=== PATIENT | male | born 1940 | race Caucasian/White ===

== ENCOUNTER 2021-07-19 15:16 | Inpatient (IN) | payer OTHER ==
[2021-07-19 16:23] LABS: Hemoglobin 13.3 g/dL (13.5-17.5); Mean Corpuscular HGB CONC 32.8 g/dL (32.0-36.0); Mean Corpuscular Hemoglobin 30.8 pg (27.0-33.0); Mean Platelet Volume 10.9 fl (7.4-10.4); Platelet Count 320 10x3/uL (150-450); RBC Distribution Width 12.5 % (11.5-14.5); Red Blood Cell (RBC) Count 4.32 10x6/uL (4.32-5.72); White Blood Cell (WBC) Count 21.5 10x3/uL (3.5-10.5)
[2021-07-19 16:38] LABS: ALT (SGPT) 21 U/L (8-55); AST (SGOT) 21 U/L (5-34); Albumin 3.9 g/dL (3.4-4.8); Alkaline Phosphatase 51 U/L (40-110); Anion Gap 19 mmol/L (10-20); BUN (Urea Nitrogen) 21 mg/dL (8.4-25.7); Calc. Creatinine Clearance 0 mL/min (70-130); Calcium 10.1 mg/dL (7.8-10.44); Carbon Dioxide 21 mmol/L (23-31); Chloride 99 mmol/L (98-107); Globulin 3.4 g/dL (2.4-3.5); Glucose 349 mg/dL (83-110); Potassium 4.4 mmol/L (3.5-5.1); Protein, Total 7.3 g/dL (5.8-8.1); Sodium 135 mmol/L (136-145)
[2021-07-19 17:36] LABS: Band 4 % (5-11); Lymphocytes 7 % (21-51); Monocytes 9 % (0-10); Reactive Lymphocytes 1 % (0-10)
[2021-07-19 17:37] LABS: MDiff Complete? YES; Neutrophil 79 % (42-75); Platelet Morphology Comment Appears Adequate; RBC Morphology Normal; Vacuoles SLIGHT
[2021-07-19 17:59] LABS: Bilirubin Neg (Negative); Blood, Urine 10 (Negative); Clarity Clear (Clear); Glucose, Urine (Dipstick) >=1000 mg/dL (Negative); Ketone, Urine 50 mg/dL (Negative); Leukocyte Negative (Negative); Nitrite Negative (Negative); Protein, Urine (Dipstick) 30 mg/dl (Neg-Trace); Specific Gravity, Urine 1.025 (1.002-1.036)
[2021-07-19 18:13] LABS: Bacteria/HPF 2+ HPF (None Seen); RBC/HPF 0-3 HPF (0-3); Squamous Epithelial 0-3 HPF (0-3); WBC/HPF 0-3 HPF (0-3)
[2021-07-19 18:14] LABS: Mucous/LPF 3+ LPF (<2+)
[2021-07-19] MEDS ORDERED: Senokot S 8.6-50 MG TAB PO PRN (20:31)
[2021-07-19] MEDS ORDERED: Calcium Carbonate 500 MG ChewTAB PO PRN (20:31)
[2021-07-19] MEDS ORDERED: Dextrose 5% in Water 1,000 ML IV PRN (20:31)
[2021-07-19] MEDS ORDERED: Ondansetron PF 4 MG/2 ML Vial IVP PRN (20:31)
[2021-07-19] MEDS ORDERED: Dextrose 50% Abboject 50 ML SYRINGE SLOW IVP PRN (20:31)
[2021-07-19] MEDS ORDERED: HYDROcodone/Acetaminophen 5/325 mg Tablet PO PRN (20:31)
[2021-07-19] MEDS ORDERED: cefTRIAXone\\ROCEPHIN 1 GM VIAL ONE (20:34)
[2021-07-19] MEDS ORDERED: Piperacillin/Tazobactam 3.375 GM in Sodium Chloride 0.9% 100 ML IVPB SCH ×2 (20:45→23:59)
[2021-07-19] MEDS ORDERED: Azithromycin 500 MG VIAL ONE (21:10)
[2021-07-19 22:09] LABS: SARS-CoV-2 NAA Rapid Test Not Detected (NotDetected)
[2021-07-19 22:52] VITALS: BMI 27.3
[2021-07-19] MEDS ORDERED: Sodium Chloride 0.9% 1,000 ML IV SCH (23:00)
[2021-07-19] MEDS ORDERED: Simvastatin 10 MG TAB PO SCH (23:15)
[2021-07-19] MEDS ORDERED: Tamsulosin HCl 0.4 MG CAP PO SCH (23:15)
[2021-07-19] MEDS ORDERED: Lorazepam 1 MG TAB PO SCH (23:15)
[2021-07-19 23:30] LABS: Lactic Acid 1.9 mmol/L (0.5-2.2)
[2021-07-19] MEDS: HumaLOG 300 UNITS/3 ML VIAL SC PRN (23:38)
[2021-07-19] MEDS: Guaifenesin DM 100-10/5 ML UDCUP PO PRN (23:43)
[2021-07-20] MEDS: Piperacillin/Tazobactam 3.375 GM in Sodium Chloride 0.9% 100 ML IVPB SCH ×3 (04:31→19:57)
[2021-07-20 04:49] LABS: Strep pneumo Urine Ag NEGATIVE (NEGATIVE)
[2021-07-20 05:55] LABS: #Basophils 0.1 10x3/uL (0.0-0.2); #Eosinphils 0.2 10x3/uL (0.0-0.5); #Monocytes 1.1 10x3/uL (0.0-1.1); #Neutrophils 11.8 10x3/uL (1.5-8.4); %Basophils 0.3 % (0.0-2.0); %Eosinophils 1.4 % (0.0-6.0); %Lymphocytes 13.6 % (18.0-47.0); %Monocytes 7.4 % (0.0-10.0); %Neutrophils 76.8 % (40.0-75.0); Hemoglobin 12.1 g/dL (13.5-17.5); Mean Corpuscular HGB CONC 33.2 g/dL (32.0-36.0); Mean Corpuscular Hemoglobin 31.5 pg (27.0-33.0); Mean Corpuscular Volume 94.8 fl (81.2-95.1); Mean Platelet Volume 11.6 fl (7.4-10.4); Platelet Count 250 10x3/uL (150-450); RBC Distribution Width 12.6 % (11.5-14.5); Red Blood Cell (RBC) Count 3.84 10x6/uL (4.32-5.72); White Blood Cell (WBC) Count 15.4 10x3/uL (3.5-10.5)
[2021-07-20 06:11] LABS: Anion Gap 16 mmol/L (10-20); BUN (Urea Nitrogen) 20 mg/dL (8.4-25.7); Calc. Creatinine Clearance 63 mL/min (70-130); Calcium 9.6 mg/dL (7.8-10.44); Carbon Dioxide 21 mmol/L (23-31); Chloride 106 mmol/L (98-107); Glucose 190 mg/dL (83-110); Magnesium 1.8 mg/dL (1.6-2.6); Potassium 3.8 mmol/L (3.5-5.1); Sodium 139 mmol/L (136-145)
[2021-07-20] MEDS: Budesonide 0.5 MG/2 ML NEB NEB SCH ×2 (06:12→18:48)
[2021-07-20] MEDS: Fenofibrate Nanocrystallized 145 MG TAB PO SCH (08:35)
[2021-07-20] MEDS: Finasteride 5 MG TAB PO SCH ×2 (08:35→08:54)
[2021-07-20] MEDS: Multivitamin W/ Minerals 1 TAB PO SCH (08:36)
[2021-07-20] MEDS: Acetaminophen 325 MG TAB PO PRN (08:36)
[2021-07-20] MEDS: Enoxaparin Sodium 40 MG/0.4 ML SYRINGE SC SCH (08:36)
[2021-07-20] MEDS: Atenolol 25 MG TAB PO SCH (08:36)
[2021-07-20] MEDS ORDERED: cycloSPORINE 0.05% Ophthalmic Droperette EA EYE SCH (09:00)
[2021-07-20 09:15] LABS: Legionella Urinary Ag Negative (Negative)
[2021-07-20] MEDS ORDERED: Artificial Tear Sol 15 ML BOT EA EYE PRN (09:17)
[2021-07-20] MEDS: HumaLOG 300 UNITS/3 ML VIAL SC PRN (11:37)
[2021-07-20] MEDS: Guaifenesin DM 100-10/5 ML UDCUP PO PRN (19:55)
[2021-07-20] MEDS: Simvastatin 10 MG TAB PO SCH (19:56)
[2021-07-20] MEDS: Tamsulosin HCl 0.4 MG CAP PO SCH (19:59)
[2021-07-20] MEDS: Lorazepam 1 MG TAB PO SCH (22:00)
[2021-07-20] MEDS: Azithromycin 500 MG in Sodium Chloride 0.9% 250 ML 250 ML IVPB SCH (22:30)
[2021-07-21] MEDS: HumaLOG 300 UNITS/3 ML VIAL SC PRN ×3 (01:00→17:23)
[2021-07-21] MEDS: Piperacillin/Tazobactam 3.375 GM in Sodium Chloride 0.9% 100 ML IVPB SCH (05:00)
[2021-07-21] MEDS: Budesonide 0.5 MG/2 ML NEB NEB SCH ×2 (06:40→18:45)
[2021-07-21] MEDS: Atenolol 25 MG TAB PO SCH (08:41)
[2021-07-21] MEDS: Finasteride 5 MG TAB PO SCH (08:41)
[2021-07-21] MEDS: cefTRIAXone\\ROCEPHIN 1 GM in Sodium Chloride 0.9% 100 ML IVPB SCH (08:42)
[2021-07-21] MEDS: Multivitamin W/ Minerals 1 TAB PO SCH (08:42)
[2021-07-21] MEDS: Enoxaparin Sodium 40 MG/0.4 ML SYRINGE SC SCH (08:42)
[2021-07-21] MEDS: Fenofibrate Nanocrystallized 145 MG TAB PO SCH (08:46)
[2021-07-21 08:57] LABS: Hemoglobin A1c 9.1 % (4.0-6.0)
[2021-07-21] MEDS ORDERED: Amlodipine 5 MG TAB PO SCH (12:00)
[2021-07-21] MEDS: Tamsulosin HCl 0.4 MG CAP PO SCH (20:42)
[2021-07-21] MEDS: Lorazepam 1 MG TAB PO SCH (20:42)
[2021-07-21] MEDS: Simvastatin 10 MG TAB PO SCH (20:42)
[2021-07-21] MEDS: Azithromycin 500 MG in Sodium Chloride 0.9% 250 ML 250 ML IVPB SCH (22:17)
[2021-07-21] MEDS: Heparin 5,000 UNITS/ML VIAL SC SCH (22:19)
[2021-07-22] MEDS: HumaLOG 300 UNITS/3 ML VIAL SC PRN ×3 (01:00→17:18)
[2021-07-22] MEDS: Acetaminophen 325 MG TAB PO PRN ×2 (01:15→18:23)
[2021-07-22] MEDS: hydrALAZINE 20 MG/ML VIAL SLOW IVP PRN ×3 (01:15→17:18)
[2021-07-22] MEDS: Budesonide 0.5 MG/2 ML NEB NEB SCH ×2 (06:15→19:45)
[2021-07-22 06:46] LABS: #Basophils 0.1 10x3/uL (0.0-0.2); #Eosinphils 0.6 10x3/uL (0.0-0.5); #Monocytes 1.2 10x3/uL (0.0-1.1); #Neutrophils 8.1 10x3/uL (1.5-8.4); %Eosinophils 4.7 % (0.0-6.0); %Lymphocytes 14.4 % (18.0-47.0); %Monocytes 9.9 % (0.0-10.0); %Neutrophils 67.3 % (40.0-75.0); Hemoglobin 12.2 g/dL (13.5-17.5); Mean Corpuscular HGB CONC 32.5 g/dL (32.0-36.0); Mean Corpuscular Hemoglobin 30.6 pg (27.0-33.0); Mean Platelet Volume 10.7 fl (7.4-10.4); Platelet Count 309 10x3/uL (150-450); RBC Distribution Width 12.3 % (11.5-14.5); Red Blood Cell (RBC) Count 3.99 10x6/uL (4.32-5.72); White Blood Cell (WBC) Count 12.1 10x3/uL (3.5-10.5)
[2021-07-22 06:52] LABS: Anion Gap 17 mmol/L (10-20); BUN (Urea Nitrogen) 12 mg/dL (8.4-25.7); Calc. Creatinine Clearance 79 mL/min (70-130); Calcium 9.1 mg/dL (7.8-10.44); Carbon Dioxide 18 mmol/L (23-31); Chloride 107 mmol/L (98-107); Glucose 181 mg/dL (83-110); Potassium 3.2 mmol/L (3.5-5.1); Sodium 139 mmol/L (136-145)
[2021-07-22] MEDS: Fenofibrate Nanocrystallized 145 MG TAB PO SCH (09:01)
[2021-07-22] MEDS: Finasteride 5 MG TAB PO SCH (09:01)
[2021-07-22] MEDS: Heparin 5,000 UNITS/ML VIAL SC SCH ×4 (09:01→21:08)
[2021-07-22] MEDS: cefTRIAXone\\ROCEPHIN 1 GM in Sodium Chloride 0.9% 100 ML IVPB SCH (09:01)
[2021-07-22] MEDS: Multivitamin W/ Minerals 1 TAB PO SCH (09:01)
[2021-07-22] MEDS: Atenolol 25 MG TAB PO SCH (09:01)
[2021-07-22] MEDS: Azithromycin 500 MG in Sodium Chloride 0.9% 250 ML 250 ML IVPB SCH (20:50)
[2021-07-22] MEDS: Lorazepam 1 MG TAB PO SCH (20:51)
[2021-07-22] MEDS: Simvastatin 10 MG TAB PO SCH (20:51)
[2021-07-22] MEDS: Tamsulosin HCl 0.4 MG CAP PO SCH (20:51)
[2021-07-23] MEDS: HumaLOG 300 UNITS/3 ML VIAL SC PRN ×4 (00:10→23:56)
[2021-07-23 04:40] LABS: Hemoglobin 12.6 g/dL (13.5-17.5); Mean Corpuscular HGB CONC 33.5 g/dL (32.0-36.0); Mean Corpuscular Hemoglobin 30.9 pg (27.0-33.0); Mean Corpuscular Volume 92.2 fl (81.2-95.1); Mean Platelet Volume 10.8 fl (7.4-10.4); Platelet Count 380 10x3/uL (150-450); RBC Distribution Width 12.6 % (11.5-14.5); Red Blood Cell (RBC) Count 4.08 10x6/uL (4.32-5.72); White Blood Cell (WBC) Count 13.5 10x3/uL (3.5-10.5)
[2021-07-23 04:42] LABS: Anion Gap 18 mmol/L (10-20); BUN (Urea Nitrogen) 13 mg/dL (8.4-25.7); Calc. Creatinine Clearance 76 mL/min (70-130); Calcium 9.5 mg/dL (7.8-10.44); Carbon Dioxide 17 mmol/L (23-31); Chloride 109 mmol/L (98-107); Glucose 192 mg/dL (83-110); Potassium 3.4 mmol/L (3.5-5.1); Sodium 141 mmol/L (136-145)
[2021-07-23] MEDS: Budesonide 0.5 MG/2 ML NEB NEB SCH ×2 (06:25→19:10)
[2021-07-23 07:12] LABS: Band 6 % (5-11); Eosinophils 3 % (0-10); Lymphocytes 14 % (21-51); Metamyelocyte 1 % (0-0); Monocytes 10 % (0-10); Myelocyte 4 % (0-0); Neutrophil 61 % (42-75); Reactive Lymphocytes 1 % (0-10)
[2021-07-23 07:13] LABS: Polychromasia SLIGHT = 2-3 cells (100X) (0-2/hpf)
[2021-07-23 07:14] LABS: Anisocytosis SLIGHT = 6-15 cells (100X) (0-5/hpf)
[2021-07-23 07:15] LABS: Large Platelets SLIGHT; Platelet Morphology Comment Appears Adequate
[2021-07-23 07:16] LABS: MDiff Complete? YES
[2021-07-23] MEDS ORDERED: Potassium Chloride 20 MEQ TAB PO SCH (08:45)
[2021-07-23] MEDS: Multivitamin W/ Minerals 1 TAB PO SCH (09:52)
[2021-07-23] MEDS: Atenolol 25 MG TAB PO SCH (09:52)
[2021-07-23] MEDS: Fenofibrate Nanocrystallized 145 MG TAB PO SCH (09:53)
[2021-07-23] MEDS: Heparin 5,000 UNITS/ML VIAL SC SCH ×3 (09:53→20:55)
[2021-07-23] MEDS: Finasteride 5 MG TAB PO SCH (09:54)
[2021-07-23] MEDS: cefTRIAXone\\ROCEPHIN 1 GM in Sodium Chloride 0.9% 100 ML IVPB SCH (10:05)
[2021-07-23] MEDS: hydrALAZINE 20 MG/ML VIAL SLOW IVP PRN ×2 (18:10→23:49)
[2021-07-23] MEDS: Tamsulosin HCl 0.4 MG CAP PO SCH (20:43)
[2021-07-23] MEDS: Simvastatin 10 MG TAB PO SCH (20:44)
[2021-07-23] MEDS: Lorazepam 1 MG TAB PO SCH (20:45)
[2021-07-23] MEDS: Azithromycin 500 MG in Sodium Chloride 0.9% 250 ML 250 ML IVPB SCH (20:46)
[2021-07-23] MEDS: Acetaminophen 325 MG TAB PO PRN (23:54)
[2021-07-24] MEDS: Acetaminophen 325 MG TAB PO PRN (05:13)
[2021-07-24] MEDS: Budesonide 0.5 MG/2 ML NEB NEB SCH ×2 (06:20→19:31)
[2021-07-24 06:37] LABS: Anion Gap 17 mmol/L (10-20); BUN (Urea Nitrogen) 14 mg/dL (8.4-25.7); Calc. Creatinine Clearance 73 mL/min (70-130); Calcium 9.7 mg/dL (7.8-10.44); Carbon Dioxide 17 mmol/L (23-31); Chloride 109 mmol/L (98-107); Glucose 196 mg/dL (83-110); Potassium 3.8 mmol/L (3.5-5.1); Sodium 139 mmol/L (136-145)
[2021-07-24 06:47] LABS: Hemoglobin 12.4 g/dL (13.5-17.5); Mean Corpuscular HGB CONC 33.2 g/dL (32.0-36.0); Mean Corpuscular Hemoglobin 30.2 pg (27.0-33.0); Mean Platelet Volume 11.7 fl (7.4-10.4); Platelet Count 328 10x3/uL (150-450); RBC Distribution Width 12.8 % (11.5-14.5); Red Blood Cell (RBC) Count 4.11 10x6/uL (4.32-5.72); White Blood Cell (WBC) Count 11.3 10x3/uL (3.5-10.5)
[2021-07-24 07:34] LABS: Band 10 % (5-11); Eosinophils 6 % (0-10); Lymphocytes 27 % (21-51); Metamyelocyte 1 % (0-0); Monocytes 7 % (0-10); Myelocyte 4 % (0-0); Neutrophil 40 % (42-75); Reactive Lymphocytes 4 % (0-10)
[2021-07-24 07:35] LABS: Large Platelets MODERATE; Platelet Clumps SLIGHT; Platelet Morphology Comment Appears Adequate
[2021-07-24 07:37] LABS: MDiff Complete? YES; RBC Morphology Normal
[2021-07-24] MEDS: Atenolol 25 MG TAB PO SCH (09:14)
[2021-07-24] MEDS: Multivitamin W/ Minerals 1 TAB PO SCH (09:14)
[2021-07-24] MEDS: Fenofibrate Nanocrystallized 145 MG TAB PO SCH (09:14)
[2021-07-24] MEDS: Finasteride 5 MG TAB PO SCH (09:14)
[2021-07-24] MEDS: Heparin 5,000 UNITS/ML VIAL SC SCH ×2 (09:15→20:45)
[2021-07-24] MEDS: cefTRIAXone\\ROCEPHIN 1 GM in Sodium Chloride 0.9% 100 ML IVPB SCH (09:21)
[2021-07-24] MEDS: HumaLOG 300 UNITS/3 ML VIAL SC PRN ×2 (11:40→23:10)
[2021-07-24] MEDS: Simvastatin 10 MG TAB PO SCH (20:44)
[2021-07-24] MEDS: Azithromycin 500 MG in Sodium Chloride 0.9% 250 ML 250 ML IVPB SCH (20:44)
[2021-07-24] MEDS: Lorazepam 1 MG TAB PO SCH (20:45)
[2021-07-24] MEDS: Tamsulosin HCl 0.4 MG CAP PO SCH (20:45)
[2021-07-25] MEDS: hydrALAZINE 20 MG/ML VIAL SLOW IVP PRN (05:22)
[2021-07-25] MEDS: HumaLOG 300 UNITS/3 ML VIAL SC PRN (05:22)
[2021-07-25] MEDS: Budesonide 0.5 MG/2 ML NEB NEB SCH (06:55)
[2021-07-25] MEDS ORDERED: Valsartan 80 MG TAB PO SCH (09:00)
[2021-07-25] MEDS: cefTRIAXone\\ROCEPHIN 1 GM in Sodium Chloride 0.9% 100 ML IVPB SCH (10:02)
[2021-07-25] MEDS: Heparin 5,000 UNITS/ML VIAL SC SCH (10:02)
[2021-07-25] MEDS: Finasteride 5 MG TAB PO SCH (10:02)
[2021-07-25] MEDS: Multivitamin W/ Minerals 1 TAB PO SCH (10:02)
[2021-07-25] MEDS: Atenolol 25 MG TAB PO SCH (10:02)
[2021-07-25] MEDS: Fenofibrate Nanocrystallized 145 MG TAB PO SCH (10:03)
[2021-07-25] MEDS ORDERED: methylPREDNISolone Sod Succ/PF 125 MG/2 ML VIAL IVP SCH (14:00)
[2021-07-25 16:35] VITALS: BP 146/70; TEMP 97.6
== END 2021-07-25 17:20 | disposition home or self-care (01) | DRG 871 ==
LOC: CSHERS 15:16 → CSHTELE 22:49 → OBSVTOIN 22:50
PROVIDERS: ADMIT Student in an Organized Health Care Education/Training Program; ATTEND Internal Medicine
DX: A41.9 Sepsis, unspecified organism (principal); J18.9 Pneumonia, unspecified organism; J44.0 Chronic obstructive pulmonary disease with (acute) lower respiratory infection; E87.2 Acidosis; E86.0 Dehydration; E78.5 Hyperlipidemia, unspecified; E11.22 Type 2 diabetes mellitus with diabetic chronic kidney disease; K21.9 Gastro-esophageal reflux disease without esophagitis; F41.9 Anxiety disorder, unspecified; F32.A Depression, unspecified; E11.65 Type 2 diabetes mellitus with hyperglycemia; E78.2 Mixed hyperlipidemia; I12.9 Hypertensive chronic kidney disease with stage 1 through stage 4 chronic kidney disease, or unspecified chronic kidney disease; N18.30 Chronic kidney disease, stage 3 unspecified; N40.0 Benign prostatic hyperplasia without lower urinary tract symptoms; Z20.822 Contact with and (suspected) exposure to COVID-19; Z91.81 History of falling; Z79.51 Long term (current) use of inhaled steroids; Z79.899 Other long term (current) drug therapy; Z85.038 Personal history of other malignant neoplasm of large intestine; Z86.718 Personal history of other venous thrombosis and embolism; Z86.711 Personal history of pulmonary embolism; Z90.49 Acquired absence of other specified parts of digestive tract; Z87.891 Personal history of nicotine dependence
CPT/HCPCS: 36415; 36416; 70450; 71045; 80048; 80053; 81003; 81015; 82274; 82607; 82746; 83036; 83605; 83735; 84145; 84443; 84484; 85025; 87040; 87449; 87804; 87899; 93005; 94640; 94760; 96365; 96367; J0360; J0456; J0696; J1644; J1650; J1815; J2543; J3490; J7050; J7620; J7626; U0002

== ENCOUNTER 2022-12-12 06:36 | Day surgery (SDC) | payer OTHER ==
[2022-12-10 11:40] VITALS: BMI 28.4
[2022-12-12] MEDS ORDERED: Lidocaine 1% PF 5 ML VIAL ONE (08:22)
[2022-12-12] MEDS ORDERED: PROPOFOL 40 ML ONE (08:22)
[2022-12-12] MEDS ORDERED: Esmolol 100 MG/10 ML VIAL ONE (08:22)
== END 2022-12-12 10:07 | disposition home or self-care (01) ==
LOC: CSHSDC 06:36
PROVIDERS: ATTEND Internal Medicine Gastroenterology
PROC: 0DBN8ZX Excision of Sigmoid Colon, Via Natural or Artificial Opening Endoscopic, Diagnostic (ICD-10-PCS; principal; 2022-12-12)
PROC: 0DB48ZX Excision of Esophagogastric Junction, Via Natural or Artificial Opening Endoscopic, Diagnostic (ICD-10-PCS; principal; 2022-12-12)
DX: K29.50 Unspecified chronic gastritis without bleeding (principal); K21.00 Gastro-esophageal reflux disease with esophagitis, without bleeding; K57.30 Diverticulosis of large intestine without perforation or abscess without bleeding; K44.9 Diaphragmatic hernia without obstruction or gangrene; K64.8 Other hemorrhoids; K63.5 Polyp of colon; K22.89 Other specified disease of esophagus; I10 Essential (primary) hypertension; E11.9 Type 2 diabetes mellitus without complications; J44.9 Chronic obstructive pulmonary disease, unspecified; N40.0 Benign prostatic hyperplasia without lower urinary tract symptoms; E78.5 Hyperlipidemia, unspecified; Z80.1 Family history of malignant neoplasm of trachea, bronchus and lung; Z88.8 Allergy status to other drugs, medicaments and biological substances; Z91.013 Allergy to seafood; Z87.891 Personal history of nicotine dependence; Z79.899 Other long term (current) drug therapy; Z79.84 Long term (current) use of oral hypoglycemic drugs
CPT/HCPCS: 88305; J2704

== ENCOUNTER 2023-01-13 11:37 | Emergency (ER) | payer OTHER ==
[~2023-01-13 11:37] MED LIST: Iopamidol 300 61% 100 ML VIAL FS ONE
[2023-01-13] MEDS ORDERED: Ketorolac Tromethamine 30 MG/ML VIAL ONE (12:34)
[2023-01-13] MEDS ORDERED: HYDROcodone/Acetaminophen 10/325 mg Tablet ONE (12:34)
== END 2023-01-13 15:31 | disposition home or self-care (01) ==
LOC: CSHERS 11:37
DX: S22.41XA Multiple fractures of ribs, right side, initial encounter for closed fracture (principal); E11.9 Type 2 diabetes mellitus without complications; I10 Essential (primary) hypertension; E78.5 Hyperlipidemia, unspecified; W01.0XXA Fall on same level from slipping, tripping and stumbling without subsequent striking against object, initial encounter
CPT/HCPCS: 71250; 72125; 74177; 96372; J1885; Q9967

== ENCOUNTER 2024-05-05 14:09 | Outpatient (CLI) | payer OTHER | END 2024-05-05 14:10 | disposition home or self-care (01) | LOC: CSHCP 14:09 | PROVIDERS: ATTEND Internal Medicine Critical Care Medicine | DX: R06.09 Other forms of dyspnea (principal); J44.9 Chronic obstructive pulmonary disease, unspecified; J98.4 Other disorders of lung | CPT/HCPCS: 94060; 94726; 94729; 94760 ==